=== PATIENT | male | born 1960 | race Hispanic/Latino ===

== ENCOUNTER 2021-01-23 22:15 | Emergency (ER) | payer OTHER ==
[2021-01-23] MEDS ORDERED: TETANUS,DIPH,PERTUSS(ACELL) VACCINE 0.5 ML SYRINGE IM ONE (22:36)
[2021-01-23] MEDS ORDERED: ONDANSETRON 4 MG/2 ML INJ IV ONE ×2 (22:37)
[2021-01-23] MEDS ORDERED: HYDROmorphone 1 MG/1 ML INJ IV ONE ×4 (22:37→23:59)
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
--- NOTE | 2021-01-23 23:31 | XRay Report ---
HUMERUS 2 VIEWS INDICATION / CLINICAL INFORMATION: elbow deformity COMPARISON: None available. FINDINGS: BONES / JOINT(S): There is fracture dislocation of the elbow with comminuted fracture of the ulna the radius is dislocated relative to the distal humerus. There is soft tissue gas adjacent to the elbow. No discrete fracture of the humerus is identified on these radiographs. SOFT TISSUES: There is soft tissue gas and soft tissue swelling around the elbow. ADDITIONAL FINDINGS: None. Signer Name: Jeffrey Mcarthur MD Signed: 01/23/2021 11:26 PM Workstation Name: [id number]
--- NOTE | 2021-01-23 23:31 | XRay Report ---
LEFT ELBOW 2 VIEWS INDICATION / CLINICAL INFORMATION: elbow deformity COMPARISON: None available. FINDINGS: BONES / JOINT(S): There is fracture dislocation of the left elbow. There is a comminuted fracture of the proximal ulna. The ulnar fracture is angulated anteriorly. There is soft tissue gas. SOFT TISSUES: There is soft tissue gas indicating that this is an open fracture. ADDITIONAL FINDINGS: None. Signer Name: Jeffrey Mcarthur MD Signed: 01/23/2021 11:27 PM Workstation Name: [id number]
[2021-01-24] MEDS ORDERED: HYDROmorphone 1 MG/1 ML INJ IV ONE ×3 (00:01→02:20)
[2021-01-24 01:23] VITALS: BP 113/68
== END 2021-01-24 02:00 | disposition other institution (70) ==
LOC: ED 22:15
DX: S52.092B Other fracture of upper end of left ulna, initial encounter for open fracture type I or II (principal); I10 Essential (primary) hypertension; F17.200 Nicotine dependence, unspecified, uncomplicated; Z98.890 Other specified postprocedural states; Z79.2 Long term (current) use of antibiotics; Z79.899 Other long term (current) drug therapy; Z88.0 Allergy status to penicillin; W10.9XXA Fall (on) (from) unspecified stairs and steps, initial encounter; Y93.89 Activity, other specified; Y92.89 Other specified places as the place of occurrence of the external cause; Y99.8 Other external cause status
CPT/HCPCS: 29105; 73060; 73070; 90471; 90715; 96365; 96375; 96376; 99285; J0690; J1170; J2405

== ENCOUNTER 2021-01-31 12:00 | Emergency (ER) | payer OTHER ==
--- NOTE | 2021-01-31 17:17 | Event Note ---
ED Screening Note Date of service: 01/31/21 Time: 17:14 ED Screening Note: Patient presents to the ER today with complaints of difficulty urinating and pain with urination which started this past Sunday and then hematuria which started today. He denies any back pain or abdominal pain. He denies any known prostate disease. He is not any blood thinners. Patient also complains of left-sided chest pain today. He states that he thinks it could be from a pulled muscle because he recently fractured his left ulnar and had to have it surgically repaired at [place] last week. He denies any associated shortness of breath. Patient also requesting a refill on his oxycodone 5 mg which was prescribed to him after his surgery on his left ulnar at [place]. He states that he had to take more than what was prescribed over the weekend because he was using his hands when he was not supposed to. His follow-up appointment is February 11. This initial assessment/diagnostic orders/clinical plan/treatment(s) is/are subject to change based on patients health status, clinical progression and re-assessment by fellow clinical providers in the ED. Further treatment and workup at subsequent clinical providers discretion. Patient/guardian urged not to elope from the ED as their condition may be serious if not clinically assessed and managed. Initial orders include: CBC, CMP, EKG, troponin, urinalysis, chest x-ray
--- NOTE | 2021-01-31 17:40 | Electrocardiograph Report ---
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
[2021-01-31 17:51] LABS: Basophils # (Auto) 0.1 K/mm3 (0.0-0.1); Basophils % (Auto) 0.6 % (0.0-1.8); Eosinophils # (Auto) 0.1 K/mm3 (0.0-0.4); Hemoglobin 11.7 gm/dl (11.8-15.2); Lymphocytes # (Auto) 0.9 K/mm3 (1.2-5.4); Lymphocytes % (Auto) 10.9 % (13.4-35.0); Mean Corpuscular HGB Conc 34 % (32-34); Mean Corpuscular Volume 96 fl (84-94); Monocytes # (Auto) 0.8 K/mm3 (0.0-0.8); Monocytes % (Auto) 9.5 % (0.0-7.3); Platelet Count 400 K/mm3 (140-440); Red Blood Count 3.54 M/mm3 (3.65-5.03); Red Cell Distribution Width 12.9 % (13.2-15.2)
--- NOTE | 2021-01-31 18:00 | XRay Report ---
CHEST 2 VIEWS INDICATION: chest pain. COMPARISON: None FINDINGS: Support devices: None. Heart: Within normal limits. Lungs: No acute air space or interstitial disease. Pleura: No significant pleural effusion. No pneumothorax. Additional findings: Old healed rib fractures left hemithorax IMPRESSION: 1. No acute findings. Signer Name: Michael Cunningham MD Signed: 01/31/2021 5:55 PM Workstation Name: [id number]
[2021-01-31 18:06] LABS: Alanine Aminotransferase 51 units/L (7-56); Albumin 3.4 g/dL (3.9-5); BUN/Creatinine Ratio 11; Blood Urea Nitrogen 9 mg/dL (9-20); Calcium 8.8 mg/dL (8.4-10.2); Hemolysis Index 4
[2021-01-31 18:07] LABS: Bacteria,Urine 1+ /HPF (Negative); Bilirubin,Urine NEG (Negative); Blood,Urine MOD (Negative); Color,Urine Yellow (Yellow); Mucus,Urine FEW /HPF; Protein,Urine <15 mg/dL mg/dL (Negative); Urobilinogen,Urine < 2.0 mg/dL (<2.0)
[2021-01-31] MEDS ORDERED: ONDANSETRON 4 MG ODT TAB PO ONE (23:12)
[2021-01-31] MEDS ORDERED: MORPHINE 4 MG/1 ML INJ IV ONE (23:12)
--- NOTE | 2021-01-31 23:52 | Emergency Department Report ---
ED Chest Pain HPI - General Chief Complaint: Chest Pain Stated Complaint: CHEST PAIN/ELBOW INJURY Time Seen by Provider: 01/31/21 14:02 Source: patient Mode of arrival: Ambulatory Limitations: No Limitations - History of Present Illness Initial Comments: 60-year-old male patient presents with complaints of difficulty urinating, dysuria, hematuria x2 days and left-sided chest pain today. Patient states he fell down some stairs about 8 to 10 days ago and broke his left arm. He also states he sustained bruising to his left torso and chest wall. Patient reports he had surgery at [facility] last week to repair a broken ulna. He admits to some shortness of breath, but denies cough or hemoptysis or history of DVT/PE. No abdominal pain per patient, however he states history of a right inguinal hernia that has been increasing in pain for some time now. No penile discharge or testicular pain/swelling per patient. He reports history of hypertension and family history of heart disease. Patient rates his chest pain as a 7/10 in severity and describes it as aching. He states that he believes the chest pain has been there since his fall, however he believes he is just now noticing the pain due to running out of his prescribed oxycodone today. - Related Data Previous Rx's Medication Instructions Recorded Last Taken Type Clindamycin [Clindamycin CAP] 300 mg PO Q8H #20 cap 05/04/14 05/08/14 21:00 Rx Clindamycin [Clindamycin CAP] 300 mg PO Q8H #12 cap 05/09/14 Unknown Rx HYDROcodone/APAP 10-325 [[place] 1 each PO Q6HR PRN #20 tablet 05/09/14 Unknown Rx 10-325 mg TAB] Clindamycin [Cleocin] 300 mg PO Q8H #30 cap 10/16/14 Unknown Rx traMADoL [Ultram] 50 mg PO Q6HR PRN #14 tablet 10/16/14 Unknown Rx Doxycycline Hyclate 100 mg PO BID 10 Days #20 02/01/21 Unknown Rx Gemifloxacin Mesylate [Factive] 320 mg PO QDAY 1 Days #1 tablet 02/01/21 Unknown Rx Allergies Allergy/AdvReac Type Severity Reaction Status Date / Time Penicillins Allergy Swelling Verified 07/15/13 04:52 Heart Score - HEART Score History: Slightly suspicious EKG: Normal Age: 45-65 Risk factors: > 3 risk factors or hx of atherosclerotic disease Troponin: < normal limit HEART Score: 3 ED Review of Systems ROS: Stated complaint: CHEST PAIN/ELBOW INJURY Other details as noted in HPI Constitutional: denies: chills, diaphoresis, fever, malaise, weakness Respiratory: shortness of breath. denies: cough, wheezing Cardiovascular: chest pain. denies: palpitations, edema, syncope Gastrointestinal: as per HPI. denies: nausea, vomiting, diarrhea, constipation, hematochezia Genitourinary: dysuria, frequency. denies: urgency, discharge Musculoskeletal: denies: back pain Neurological: denies: headache, abnormal gait Hematological/Lymphatic: denies: easy bleeding, swollen glands ED Past Medical Hx - Past Medical History Previous Medical History?: Yes Hx Hypertension: Yes Additional medical history: Hernia - Surgical History Past Surgical History?: Yes Additional Surgical History: foot - Social History Smoking Status: Never Smoker Substance Use Type: None - Medications Home Medications: Home Medications Medication Instructions Recorded Confirmed Last Taken Type Clindamycin [Clindamycin CAP] 300 mg PO Q8H #20 cap 05/04/14 05/09/14 05/08/14 21:00 Rx Clindamycin [Clindamycin CAP] 300 mg PO Q8H #12 cap 05/09/14 Unknown Rx HYDROcodone/APAP 10-325 [[place] 1 each PO Q6HR PRN #20 tablet 05/09/14 Unknown Rx 10-325 mg TAB] Clindamycin [Cleocin] 300 mg PO Q8H #30 cap 10/16/14 Unknown Rx traMADoL [Ultram] 50 mg PO Q6HR PRN #14 tablet 10/16/14 Unknown Rx Doxycycline Hyclate 100 mg PO BID 10 Days #20 tablet. 02/01/21 Unknown Rx Gemifloxacin Mesylate [Factive] 320 mg PO QDAY 1 Days #1 tablet 02/01/21 Unknown Rx ED Physical Exam - General Limitations: No Limitations General appearance: alert, in no apparent distress - Head Head exam: Present: atraumatic, normocephalic - ENT ENT exam: Present: mucous membranes moist - Neck Neck exam: Present: normal inspection - Respiratory Respiratory exam: Present: normal lung sounds bilaterally, chest wall te nderness, other (Large ecchymosis noted to left lateral chest wall and torso/abdomen with tenderness to palpation). Absent: respiratory distress - Cardiovascular Cardiovascular Exam: Present: regular rate, normal rhythm. Absent: systolic murmur, diastolic murmur, rubs, gallop - GI/Abdominal GI/Abdominal exam: Present: soft, normal bowel sounds. Absent: tenderness, guarding, rebound, rigid - Back Exam Back exam: Present: full ROM. Absent: CVA tenderness (R), CVA tenderness (L) - Neurological Exam Neurological exam: Present: alert, oriented X3, normal gait - Psychiatric Psychiatric exam: Present: normal affect, normal mood - Skin Skin exam: Present: warm, dry, intact, ecchymosis. Absent: rash ED Course Vital Signs 01/31/21 02/01/21 12:15 00:01 Temperature 99.2 F Pulse Rate 95 H 82 Respiratory 16 17 Rate Blood Pressure 142/89 [Left] Blood Pressure 161/90 [Right] O2 Sat by Pulse 97 97 Oximetry ED Medical Decision Making - Lab Data Result diagrams: 01/31/21 17:29 01/31/21 17:29 Lab Results 01/31/21 01/31/21 01/31/21 Range/Units 17:29 17:29 23:02 WBC 8.2 (4.5-11.0) K/mm3 RBC 3.54 L (3.65-5.03) M/mm3 Hgb 11.7 L (11.8-15.2) gm/dl Hct 34.0 L (35.5-45.6) % MCV 96 H (84-94) fl MCH 33 H (28-32) pg MCHC 34 (32-34) % RDW 12.9 L (13.2-15.2) % Plt Count 400 (140-440) K/mm3 Lymph % (Auto) 10.9 L (13.4-35.0) % [place] % (Auto) 9.5 H (0.0-7.3) % Eos % (Auto) 1.0 (0.0-4.3) % Baso % (Auto) 0.6 (0.0-1.8) % Lymph # (Auto) 0.9 L (1.2-5.4) K/mm3 [place] # (Auto) 0.8 (0.0-0.8) K/mm3 Eos # (Auto) 0.1 (0.0-0.4) K/mm3 Baso # (Auto) 0.1 (0.0-0.1) K/mm3 Seg Neutrophils % 78.0 H (40.0-70.0) % Seg Neutrophils # 6.4 (1.8-7.7) K/mm3 PT (12.2-14.9) Sec. INR (0.87-1.13) APTT (24.2-36.6) Sec. D-Dimer (0-234) ng/mlDDU Sodium 138 (137-145) mmol/L Potassium 4.2 (3.6-5.0) mmol/L Chloride 101.7 (98-107) mmol/L Carbon Dioxide 26 (22-30) mmol/L Anion Gap 15 mmol/L BUN 9 (9-20) mg/dL Creatinine 0.8 (0.8-1.3) mg/dL Estimated GFR > 60 ml/min BUN/Creatinine Ratio 11 % Glucose 148 H (75-100) mg/dL Calcium 8.8 (8.4-10.2) mg/dL Total Bilirubin 0.50 (0.1-1.2) mg/dL AST 49 H (5-40) units/L ALT 51 (7-56) units/L Alkaline Phosphatase 76 (35-129) units/L Troponin T < 0.010 < 0.010 (0.00-0.029) ng/mL Total Protein 6.6 (6.3-8.2) g/dL Albumin 3.4 L (3.9-5) g/dL Albumin/Globulin Ratio 1.1 % Lipase 19 (13-60) units/L Urine Color (Yellow) Urine Turbidity (Clear) Urine pH (5.0-7.0) Ur Specific [place] (1.003-1.030) Urine Protein (Negative) mg/dL Urine Glucose (UA) (Negative) mg/dL Urine Ketones (Negative) mg/dL Urine Blood (Negative) Urine Nitrite (Negative) Urine Bilirubin (Negative) Urine Urobilinogen (<2.0) mg/dL Ur Leukocyte Esterase (Negative) Urine WBC (Auto) (0.0-6.0) /HPF Urine RBC (Auto) (0.0-6.0) /HPF Urine Bacteria (Auto) (Negative) /HPF Urine Mucus /HPF 01/31/21 01/31/21 01/31/21 Range/Units 23:05 23:05 Unknown WBC (4.5-11.0) K/mm3 RBC (3.65-5.03) M/mm3 Hgb (11.8-15.2) gm/dl Hct (35.5-45.6) % MCV (84-94) fl MCH (28-32) pg MCHC (32-34) % RDW (13.2-15.2) % Plt Count (140-440) K/mm3 Lymph % (Auto) (13.4-35.0) % [place] % (Auto) (0.0-7.3) % Eos % (Auto) (0.0-4.3) % Baso % (Auto) (0.0-1.8) % Lymph # (Auto) (1.2-5.4) K/mm3 [place] # (Auto) (0.0-0.8) K/mm3 Eos # (Auto) (0.0-0.4) K/mm3 Baso # (Auto) (0.0-0.1) K/mm3 Seg Neutrophils % (40.0-70.0) % Seg Neutrophils # (1.8-7.7) K/mm3 PT 12.4 (12.2-14.9) Sec. INR 0.93 (0.87-1.13) APTT 28.0 (24.2-36.6) Sec. D-Dimer 1334.91 H (0-234) ng/mlDDU Sodium (137-145) mmol/L Potassium (3.6-5.0) mmol/L Chloride (98-107) mmol/L Carbon Dioxide (22-30) mmol/L Anion Gap mmol/L BUN (9-20) mg/dL Creatinine (0.8-1.3) mg/dL Estimated GFR ml/min BUN/Creatinine Ratio % Glucose (75-100) mg/dL Calcium (8.4-10.2) mg/dL Total Bilirubin (0.1-1.2) mg/dL AST (5-40) units/L ALT (7-56) units/L Alkaline Phosphatase (35-129) units/L Troponin T (0.00-0.029) ng/mL Total Protein (6.3-8.2) g/dL Albumin (3.9-5) g/dL Albumin/Globulin Ratio % Lipase (13-60) units/L Urine Color Yellow (Yellow) Urine Turbidity Clear (Clear) Urine pH 6.0 (5.0-7.0) Ur Specific [place] 1.014 (1.003-1.030) Urine Protein <15 mg/dl (Negative) mg/dL Urine Glucose (UA) 150 (Negative) mg/dL Urine Ketones Neg (Negative) mg/dL Urine Blood Mod (Negative) Urine Nitrite Neg (Negative) Urine Bilirubin Neg (Negative) Urine Urobilinogen < 2.0 (<2.0) mg/dL Ur Leukocyte Esterase Neg (Negative) Urine WBC (Auto) 4.0 (0.0-6.0) /HPF Urine RBC (Auto) 105.0 (0.0-6.0) /HPF Urine Bacteria (Auto) 1+ (Negative) /HPF Urine Mucus Few /HPF - Radiology Data Radiology results: report reviewed CHEST 2 VIEWS INDICATION: chest pain. COMPARISON: None FINDINGS: Support devices: None. Heart: Within normal limits. Lungs: No acute air space or interstitial disease. Pleura: No significant pleural effusion. No pneumothorax. Additional findings: Old healed rib fractures left hemithorax IMPRESSION: 1. No acute findings. CT ABDOMEN AND PELVIS WITH IV CONTRAST INDICATION: Pt complains of abd pain, hematuria, Inguinal Hernia. COMPARISON: None available. TECHNIQUE: All CT scans at this facility use dose modulation, automated exposure control, iterative reconstruction or weight based dosing, when appropriate, to reduce radiation dose to as low as reasonably achievable. FINDINGS: Lung Bases: No significant abnormality. Skeletal System: No acute abnormality. ABDOMEN: Liver: Mild steatosis. Mild hepatomegaly. Gallbladder: Cholelithiasis. Bile Ducts: No significant abnormality. Pancreas: No significant abnormality. Spleen: No significant abnormality. Adrenals: No significant abnormality. Right Kidney: No significant abnormality. Left Kidney: No significant abnormality. Upper GI tract: No significant abnormality. Lymph Nodes: No significant adenopathy. Aorta: No significant abnormality. Additional Findings: No significant abnormality. PELVIS: Colon: No acute abnormality. Urinary Bladder and Distal Ureters: No significant abnormality. Appendix: No significant abnormality. Lymph Nodes: No significant adenopathy. Additional Findings: There is a very large right groin hernia which is not completely included on this exam. There is a long segment of distal small bowel within the hernia. There is no obstruction proximal to the hernia. Mild stranding is seen within the hernia. Prostate is enlarged. IMPRESSION: 1. Small bowel containing large right groin hernia. No bowel obstruction is seen proximal to the herniated small bowel. The hernia is incompletely included on this exam due to its large size/inferior extent. 2. Incidental findings, as above. CTA CHEST WITH IV CONTRAST INDICATION: Pt complains of chest pain, S.O.B., LEFT sided bruising,+ D-dimer. TECHNIQUE: Axial CT images were obtained through the chest after injection of IV contrast. 3 plane MIP reconstructions were produced. All CT scans at this location are performed using CT dose reduction for ALARA by means of automated exposure control. COMPARISON: None available. FINDINGS: Pulmonary Arteries: No pulmonary emboli. Thoracic Aorta: No acute abnormality. Heart: Normal. Lungs: No acute air space or interstitial disease. Pleura: No pleural effusion. No pneumothorax. Lymph Nodes: No significant adenopathy. Additional Findings: None. Skeletal Structures: No significant osseous abnormality. IMPRESSION: 1. No CT evidence for pulmonary embolism. 2. No acute findings. - Medical Decision Making 60-year-old male patient presents with complaints of difficulty urinating, dysuria, hematuria x2 days and left-sided chest pain today. Patient states he fell down some stairs about 8 to 10 days ago and broke his left arm. He also states he sustained bruising to his left torso and chest wall. Patient reports he had surgery at [facility] last week to repair a broken ulna. He admits to some shortness of breath, but denies cough or hemoptysis or history of DVT/PE. No abdominal pain per patient, however he states history of a right inguinal hernia that has been increasing in pain for some time now. No penile discharge or testicular pain/swelling per patient. He reports history of hypertension and family history of heart disease. Patient rates his chest pain as a 7/10 in severity and describes it as aching. He states that he believes the chest pain has been there since his fall, however he believes he is just now noticing the pain due to running out of his prescribed oxycodone today. Critical care attestation.: If time is entered above; I have spent that time in minutes in the direct care of this critically ill patient, excluding procedure time. ED Disposition Clinical Impression: Hematuria Qualifiers: Hematuria type: gross Qualified Code(s): R31.0 - Gross hematuria Chest pain Qualifiers: Chest pain type: other chest pain Qualified Code(s): R07.89 - Other chest pain Disposition: TO HOME OR SELFCARE Is pt being admited?: No Condition: Stable Instructions: Nonspecific Chest Pain, Adult, Dysuria Prescriptions: Doxycycline Hyclate 100 mg PO BID 10 Days #20 tablet. Gemifloxacin Mesylate [Factive] 320 mg PO QDAY 1 Days #1 tablet Referrals: MCKENNA OWEN [Other] - 3-5 Days KASSIDY BROOKS MD [Staff Physician] - 02/02/21 (Blood in urine )
[2021-02-01 00:29] LABS: INR 0.93 (0.87-1.13)
--- NOTE | 2021-02-01 01:31 | Cat Scan Report ---
CTA CHEST WITH IV CONTRAST INDICATION: Pt complains of chest pain, S.O.B., LEFT sided bruising,+ D-dimer. TECHNIQUE: Axial CT images were obtained through the chest after injection of IV contrast. 3 plane MIP reconstru ctions were produced. All CT scans at this location are performed using CT dose reduction for ALARA b y means of automated exposure control. COMPARISON: None available. FINDINGS: Pulmonary Arteries: No pulmonary emboli. Thoracic Aorta: No acute abnormality. Heart: Normal. Lungs: No acute air space or interstitial disease. Pleura: No pleural effusion. No pneumothorax. Lymph Nodes: No significant adenopathy. Additional Findings: None. Skeletal Structures: No significant osseous abnormality. IMPRESSION: 1. No CT evidence for pulmonary embolism. 2. No acute findings. Signer Name: Epifanio Bolaños MD Signed: 02/01/2021 1:27 AM Workstation Name: [id number]
--- NOTE | 2021-02-01 01:37 | Cat Scan Report ---
CT ABDOMEN AND PELVIS WITH IV CONTRAST INDICATION: Pt complains of abd pain, hematuria, Inguinal Hernia. COMPARISON: None available. TECHNIQUE: All CT scans at this facility use dose modulation, automated exposure control, iterative reconstructi on or weight based dosing, when appropriate, to reduce radiation dose to as low as reasonably achieva ble. FINDINGS: Lung Bases: No significant abnormality. Skeletal System: No acute abnormality. ABDOMEN: Liver: Mild steatosis. Mild hepatomegaly. Gallbladder: Cholelithiasis. Bile Ducts: No significant abnormality. Pancreas: No significant abnormality. Spleen: No significant abnormality. Adrenals: No significant abnormality. Right Kidney: No significant abnormality. Left Kidney: No significant abnormality. Upper GI tract: No significant abnormality. Lymph Nodes: No significant adenopathy. Aorta: No significant abnormality. Additional Findings: No significant abnormality. PELVIS: Colon: No acute abnormality. Urinary Bladder and Distal Ureters: No significant abnormality. Appendix: No significant abnormality. Lymph Nodes: No significant adenopathy. Additional Findings: There is a very large right groin hernia which is not completely included on thi s exam. There is a long segment of distal small bowel within the hernia. There is no obstruction prox imal to the hernia. Mild stranding is seen within the hernia. Prostate is enlarged. IMPRESSION: 1. Small bowel containing large right groin hernia. No bowel obstruction is seen proximal to the her niated small bowel. The hernia is incompletely included on this exam due to its large size/inferior e xtent. 2. Incidental findings, as above. Signer Name: Epifanio Bolaños MD Signed: 02/01/2021 1:33 AM Workstation Name: [id number]
[2021-02-01 03:12] VITALS: BP 150/81
--- NOTE | 2021-02-01 14:53 | Event Note ---
Date: 02/01/21 The patient was evaluated in the emergency department for symptoms described in the history of present illness. He/she was evaluated in the context of the global COVID-19 pandemic, which necessitated consideration that the patient might be at risk for infection with the virus that causes COVID-19. Institutional protocols and algorithms that pertain to the evaluation of patients at risk for COVID-19 are in a state of rapid change based on information released by regulatory bodies including the CDC and federal and state organizations. These policies and algorithms were followed during the patient's care in the emergency department. Please note that these policies, procedures and recommendations changed on a rapid basis. The patient presented to this ER today with a complaint of not being able to picker packer gemifloxacin prescription. He was seen in this department last night/this evening for hematuria, as well as mild dysuria. He had a very thorough and extensive work-up. It is unlikely that the patient has a true penicillin allergy, as he was given Ancef at this department on a previous evaluation for an open arm fracture. The patient is sexually monogamous with a female, only with oral and vaginal intercourse, denies testicular pain and rectal pain as well as dyschezia, and also endorses urinary hesitancy. This is suspicious for BPH. However, in case patient has hemorrhagic cystitis, we will initiate Macrobid therapy, discontinue gemfloxacin, and discontinue doxycycline. Patient understands this plan of care. The patient is adamant in certain that he has no concern for STD at this time. He also understands that he needs to follow-up with either outpatient primary care or urology for his complaint of hematuria.
== END 2021-02-01 02:25 | disposition home or self-care (01) ==
LOC: ED 12:00
DX: R07.89 Other chest pain (principal); R31.9 Hematuria, unspecified; I10 Essential (primary) hypertension; Z98.890 Other specified postprocedural states; Z79.2 Long term (current) use of antibiotics; Z79.899 Other long term (current) drug therapy; Z88.0 Allergy status to penicillin
CPT/HCPCS: 36415; 71046; 71275; 74177; 80053; 81001; 83690; 84484; 85025; 85379; 85610; 85730; 87086; 93005; 96374; 99285; J2270; Q9967; Q0162

== ENCOUNTER 2021-03-25 10:22 | Day surgery (SDC) | payer OTHER ==
[2021-03-23 09:52] LABS: Hematocrit 44.5 % (35.5-45.6); Hemoglobin 15.2 gm/dl (11.8-15.2); Mean Corpuscular HGB Conc 34 % (32-34); Mean Corpuscular Volume 94 fl (84-94); Platelet Count 327 K/mm3 (140-440); Red Blood Count 4.72 M/mm3 (3.65-5.03); Red Cell Distribution Width 12.6 % (13.2-15.2)
[2021-03-23 10:19] LABS: Alanine Aminotransferase 126 units/L (7-56); Albumin 4.9 g/dL (3.9-5); BUN/Creatinine Ratio 22; Blood Urea Nitrogen 20 mg/dL (9-20); Calcium 9.7 mg/dL (8.4-10.2); Hemolysis Index 9
[~2021-03-25 10:22] MED LIST: VANCOMYCIN/NS 1 GM/250 ML 1 GM/250 ML BAG IV NR
[2021-03-25] MEDS ORDERED: LACTATED RINGERS 1,000 ML ONE ×2 (10:45→13:08)
[2021-03-25] MEDS ORDERED: MAGNESIUM OXIDE 400 MG TAB PO NR (10:59)
[2021-03-25] MEDS ORDERED: ONDANSETRON 4 MG/2 ML INJ IV PRN (10:59)
[2021-03-25] MEDS ORDERED: HYDROmorphone 1 MG/1 ML INJ IV PRN (10:59)
[2021-03-25] MEDS ORDERED: GABAPENTIN 300 MG CAP PO NR (11:00)
[2021-03-25] MEDS ORDERED: LACTATED RINGERS 1,000 ML IV SCH (11:00)
[2021-03-25] MEDS ORDERED: CELECOXIB 200 MG CAP PO NR (11:00)
[2021-03-25] MEDS ORDERED: MIDAZOLAM 2 MG/2 ML INJ IV NR (11:00)
[2021-03-25] MEDS ORDERED: ACETAMINOPHEN 500 MG TAB PO NR (11:00)
[2021-03-25] MEDS ORDERED: LIDOCAINE (1%) 10 MG/1 ML VIAL 20 ML MDV ONE (11:01)
[2021-03-25] MEDS ORDERED: BUPIVACAINE/PF (0.5%) 5 MG/1 ML 30 ML VIAL INFILTRATI ONE ×2 (11:01→12:29)
--- NOTE | 2021-03-25 11:15 | Anesthesia Day of Surgery ---
Anesthesia Day of Surgery - Day of Surgery Patient Examined: Yes Patient H&P Reviewed: Yes Patient is NPO: Yes
--- NOTE | 2021-03-25 11:18 | Anesthesia Consultation ---
Anesthesia Consult and Med Hx Date of service: 03/25/21 - Airway Anesthetic Teeth Evaluation: Poor (Rotten, missing) ROM Head & Neck: Adequate Mental/Hyoid Distance: Adequate Mallampati Class: Class II Intubation Access Assessment: Good - Pre-Operative Health Status ASA Pre-Surgery Classification: ASA3 Proposed Anesthetic Plan: General - Pulmonary Hx Smoking: Yes (1 1/2 PPD X 40 YRS , NOW 2-3 CIG. PER DAY) Hx Respiratory Symptoms: No (+2FS) Hx Sleep Apnea: No (SOPHIE PRE SCREEN HIGH RISK) - Cardiovascular System Hx Hypertension: Yes (ON MEDS X 2 WEEK) Hx Cardia Arrhythmia: Yes - Central Nervous System Hx Back Pain: Yes (BACK AND NECK PAIN) - Gastrointestinal Hx Gastroesophageal Reflux Disease: Yes (Dietary, rare) - Endocrine Hx Liver Disease: Yes (ELEVATED LIVER ENZYMES , HEP C) - Other Systems Hx Substance Use: Yes (HX USE , "NOT NOW") Hx Cancer: No Hx Obesity: No - Additional Comments Anesthesia Medical History Comments: Recent left elbow fracture, ORIF, LUE doesn't straighten
[2021-03-25] MEDS ORDERED: HYDROmorphone 1 MG/1 ML INJ ONE (11:29)
[2021-03-25] MEDS ORDERED: ROCURONIUM 50 MG/5 ML INJ IV ONE ×2 (11:30→13:48)
[2021-03-25] MEDS ORDERED: propofoL 200 MG/20 ML VIAL IV ONE (11:30)
[2021-03-25] MEDS ORDERED: LIDOCAINE MPF (2%) 20 MG/1 ML VIAL 5 ML ONE (11:30)
[2021-03-25] MEDS ORDERED: PHENYLEPHRINE/NS 1,000 MCG/10 ML SYRINGE (OR USE) IV ONE (12:00)
[2021-03-25] MEDS ORDERED: ePHEDrine SULFATE 50 MG/1 ML INJ ONE (12:17)
[2021-03-25] MEDS ORDERED: LIDOCAINE (1%) 10 MG/1 ML VIAL 20 ML MDV INFILTRATI ONE (12:29)
[2021-03-25] MEDS ORDERED: WATER FOR IRRIG STERILE 1,500 ML BOTTLE IR ONE (12:29)
[2021-03-25] MEDS ORDERED: NEOSTIGMINE 10MG/10 ML INJ MDV ONE (14:02)
[2021-03-25] MEDS ORDERED: ONDANSETRON 4 MG/2 ML INJ ONE (14:02)
[2021-03-25] MEDS ORDERED: GLYCOPYRROLATE 0.4 MG/2 ML INJ ONE (14:02)
--- NOTE | 2021-03-25 14:39 | Short Stay Summary ---
Short Stay Documentation Date of service: 03/25/21 - History Principal diagnosis: right inguinal hernia H&P: obtained from office - Allergies and Medications Current Medications: Allergies Penicillins Allergy (Verified 07/15/13 04:52) Swelling Home Medications Medication Instructions Recorded Confirmed Last Taken Type Gabapentin [Neurontin] 400 mg PO Q8HR 03/18/21 03/25/21 03/25/21 07:00 History Losartan/Hydrochlorothiazide 1 each PO DAILY 03/18/21 03/25/21 03/24/21 09:00 History [Losartan-Hctz 50-12.5 mg Tab] Tamsulosin [Flomax] 0.4 mg PO QDAY 03/18/21 03/25/21 03/24/21 20:00 History amLODIPine [Norvasc] 10 mg PO DAILY 03/18/21 03/25/21 03/25/21 07:00 History Active Medications Acetaminophen (Acetaminophen 500 Mg Tab) 1,000 mg PO ONCE NR Stop: 03/25/21 20:00 Last Admin: 03/25/21 11:30 Dose: 1,000 mg Documented by: Celecoxib (Celecoxib 200 Mg Cap) 400 mg PO PREOP NR Stop: 03/25/21 20:00 Last Admin: 03/25/21 11:30 Dose: 400 mg Documented by: Gabapentin (Gabapentin 300 Mg Cap) 300 mg PO PREOP NR Stop: 03/25/21 20:00 Hydromorphone HCl (Hydromorphone 1 Mg/1 Ml Inj) 0.25 mg IV Q10MIN PRN PRN Reason: Pain, Moderate (4-6) Stop: 03/25/21 23:00 Hydromorphone HCl (Hydromorphone 1 Mg/1 Ml Inj) 0.5 mg IV Q10MIN PRN PRN Reason: Pain , Severe (7-10) Stop: 03/25/21 23:00 Vancomycin HCl (Vancomycin/Ns 1 Gm/250 Ml) 1 gm in 250 mls @ 166.667 mls/hr IV PREOP NR; Protocol Stop: 03/25/21 20:00 Last Admin: 03/25/21 11:30 Dose: 166.667 mls/hr Documented by: Lactated Ringer's (Lactated Ringers) 1,000 mls @ 125 mls/hr IV DIRECT MIGUEL Last Admin: 03/25/21 11:10 Dose: 125 mls/hr Documented by: Magnesium Oxide (Magnesium Oxide 400 Mg Tab) 400 mg PO ONCE NR Stop: 03/25/21 15:00 Last Admin: 03/25/21 11:30 Dose: 400 mg Documented by: Midazolam HCl (Midazolam 2 Mg/2 Ml Inj) 2 mg IV PREOP NR Stop: 03/25/21 23:59 Last Admin: 03/25/21 11:32 Dose: 2 mg Documented by: Ondansetron HCl (Ondansetron 4 Mg/2 Ml Inj) 4 mg IV ONCE PRN PRN Reason: Nausea And Vomiting Stop: 03/25/21 16:00 - Brief post op/procedure progress note Date of procedure: 03/25/21 Pre-op diagnosis: right inguinal hernia Post-op diagnosis: same Procedure: robotic assisted right inguinal hernia repair with mesh Anesthesia: GETA, local, other (right ilioinguinal nerve block) Findings: Large indirect inguinal hernia containing small bowel with large redundant hernia sac Repaired with large right 3d max mesh Surgeon: NOE BILLS (HAZEL Carmona (assist)) Estimated blood loss: minimal Pathology: list (hernia sac) Specimen disposition: to lab Condition: stable - Hospital course Hospital course: Pt observed in PACU and discharged to home in stable condition. - Disposition Condition at discharge: Good Disposition: DC-01 TO HOME OR SELFCARE Short Stay Discharge Plan Activity: other (No heavy lifting) Diet: low fat Wound: open to air Additional Instructions: SEE PRINTED DISCHARGE INSTRUCTIONS Follow up with: YESI GABRIEL JR DEVELOPMENT VICE PRESIDENT [Primary Care Provider] - 7 Days NOE BILLS DO [Staff Physician] - 14 Days Prescriptions: Ibuprofen [Motrin 800 MG tab] 800 mg PO Q8HR PRN #30 tablet PRN Reason: Pain, Moderate (4-6) oxyCODONE /ACETAMINOPHEN [Percocet 5/325] 1 tab PO Q6HR PRN #30 tablet PRN Reason: Pain , Severe (7-10)
[2021-03-25] MEDS: HYDROmorphone 1 MG/1 ML INJ IV PRN ×3 (14:49→15:22)
[2021-03-25 17:04] VITALS: BP 96/61
--- NOTE | 2021-03-25 17:16 | Post Anesthesia Evaluation ---
- Post Anesthesia Evaluation Patient Participated: Yes Airway Patent: Yes Stable Respiratory Function: Yes Nausea/Vomiting: No Temp > 96.8F: Yes Pain Manageable: Yes Adequeate Hydration: Yes Anesthesia Complications: No Block Receding Appropriately: Not Applicable Patient on Ventilator: No
--- NOTE | 2021-03-31 07:00 | Operative Report ---
Operative Report Operative Report: Date of procedure: 03/25/21 Pre-op diagnosis: right inguinal hernia Post-op diagnosis: same Procedure: robotic assisted right inguinal hernia repair with mesh Anesthesia: GETA, local, other (right ilioinguinal nerve block) Findings: Large indirect inguinal hernia containing small bowel with large redundant hernia sac Repaired with large right 3d max mesh Surgeon: NOE BILLS (HAZEL Carmona (assist)) Estimated blood loss: minimal Pathology: list (hernia sac) Specimen disposition: to lab Condition: stable - Hospital course Hospital course: Pt observed in PACU and discharged to home in stable condition. - Disposition Condition at discharge: Good Disposition: [id number] TO HOME OR SELFCARE HPI and indication: Patient is a 60-year-old male who was referred to the surgery clinic for a bulge in the right groin. He was found to have a right inguinal hernia on physical exam which was reducible. The hernia was very bothersome and the patient felt it was increasing in size and becoming more painful. It was recommended that the hernia be repaired. I discussed all risk, benefits, alternatives to repair with the patient and questions were answered. I explained that if the hernia was found on the left side at the same time, this would be fixed as well. The patient was agreeable. Consent obtained for robotic assisted right inguinal hernia repair with mesh, possible left, possible open. Procedure in detail: Patient was identified in the preoperative area, takeN back to operating room, AND placed on operating room table in supine position. After anesthesia was induced both arms were tucked and all bony prominences padded appropriately. A Barnard catheter was sterilely placed by the circulating nurse. The abdomen and b/l groins were then prepped and draped in usual sterile fashion and a timeout performed. Local anesthetic was infiltrated to skin at the intended incision sites. A supraumbilical incision was made through which a Veress needle was inserted. Veress needle positioning was confirmed using saline drop test and the abdomen insufflated to 15 mmHg without incident. Once the abdomen was insufflated, the Veress needle was removed and a 5 mm Optiview trocar was placed through the incision. The abdomen was inspected there was no underlying injury to any of the abdominal structures. Patient was placed in Trendelenburg and the pelvis examined. There was a right inguinal hernia which contains small bowel, which was easily reduced using external pressure. And no obvious hernia on the left. At this point, an 8 mm right upper quadrant and left upper quadrant robotic trocars were then placed under direct visualization. The 5 mm supraumbilical trocar was removed and replaced with a 12 mm balloon trocar under direct visualization. A Ray-Kaylene was placed into the abdomen. The robot was then docked. A fenestrated bipolar was placed into arm #2 and a monopolar scissor in arm #1. The surgeon was then transferred to the console. First, I created a right sided preperitoneal flap. The peritoneum was scored approximately 5 to 6 cm from the hernia defect. The peritoneum was then incised from the midline to the ASIS. The preperitoneal flap was then developed in an avascular plane. I first defined the medial margin by dissecting to the pubic tubercle. The pubic tubercle was cleared of overlying fatty tissue using blunt dissection. I then created the lateral margin in a similar fashion. Great care was taken to avoid injury to any nerves. There was a large indirect right inguinal hernia and the hernia sac was gently reduced using blunt dissection and transecting cremasteric fibers with electrocautery. During the dissection, the cord structures were identified and protected. The cord structures and vas deferens were visualized throughout the entire dissection. The hernia sac was very large and redundant, chronically scarred. Once the hernia sac was completely reduced, the peritoneal flap was checked for hemostasis. Any additional cremasteric fibers that were were tenting up the peritoneum were divided. Hemostasis was carefully ensured. The hernia was repaired using a right large 3D max mesh. The mesh along with suture material was placed into the abdomen by the therapist's assistant. The mesh was positioned into the preperitoneal flap in the usual fashion. The medial portion of the mesh was sutured to Anand's ligament using an interrupted 2-0 Vicryl stitch. The lateral aspect of the mesh was sutured to the anterior lateral abdominal wall using a 2-0 Vicryl interrupted stitch. The mesh was seen to lay flat in the pocket with excellent coverage. The peritoneum was then reapproximated using 3-0 running V-Loc stitch. The entirety of the mesh was covered with peritoneum. The robot was then undocked and the surgeon scrubbed back in. The remainder of the case was performed laparoscopically. All sharp materials along with a Ray-Kaylene were removed from the abdomen under direct visualization. The 12 mm port was removed and the fascia closed using a interrupted 0 Vicryl stitch. The abdomen was then slowly desufflated and the mesh was seen to lay flat in the preperitoneal space. The remaining trocars were removed. Skin incisions were once again infiltrated with local anesthetic. RIGHT ilioinguinal nerve block was also performed with 5 cc of local anesthetic. The skin incisions were approximated with 4-0 Monocryl subcuticular stitches and skin glue. At the end of the case all sponge, instrument, sharp counts were correct x2. Patient was awoken from anesthesia and Barnard catheter removed. Both testicles were palpated in the scrotum in anatomic position. The patient was taken to PACU in stable condition.
== END 2021-03-25 16:20 | disposition home or self-care (01) ==
LOC: OR 10:22
PROVIDERS: ATTEND Surgery
DX: K40.90 Unilateral inguinal hernia, without obstruction or gangrene, not specified as recurrent (principal); Z20.822 Contact with and (suspected) exposure to COVID-19; F17.210 Nicotine dependence, cigarettes, uncomplicated; I10 Essential (primary) hypertension; K21.9 Gastro-esophageal reflux disease without esophagitis; F41.9 Anxiety disorder, unspecified; Z98.890 Other specified postprocedural states; Z88.0 Allergy status to penicillin; Z79.899 Other long term (current) drug therapy; Z91.81 History of falling
CPT/HCPCS: 36415; 49650; 80053; 85027; 88302; C1781; J1170; J2250; J2370; J2405; J2704; J2710; J3370; J7120; S2900; U0003

== ENCOUNTER 2021-04-05 10:45 | Outpatient (CLI) | payer OTHER ==
[2021-04-05 11:05] LABS: Basophils # (Auto) 0.1 K/mm3 (0.0-0.1); Basophils % (Auto) 0.9 % (0.0-1.8); Eosinophils # (Auto) 0.2 K/mm3 (0.0-0.4); Eosinophils % (Auto) 2.7 % (0.0-4.3); Hematocrit 40.4 % (35.5-45.6); Hemoglobin 14.3 gm/dl (11.8-15.2); Lymphocytes # (Auto) 1.6 K/mm3 (1.2-5.4); Lymphocytes % (Auto) 19.8 % (13.4-35.0); Mean Corpuscular HGB Conc 35 % (32-34); Mean Corpuscular Volume 94 fl (84-94); Monocytes # (Auto) 0.7 K/mm3 (0.0-0.8); Monocytes % (Auto) 8.3 % (0.0-7.3); Platelet Count 296 K/mm3 (140-440); Red Blood Count 4.32 M/mm3 (3.65-5.03); Red Cell Distribution Width 12.7 % (13.2-15.2)
[2021-04-05 11:40] LABS: Alanine Aminotransferase 109 units/L (7-56); Albumin 4.4 g/dL (3.9-5); BUN/Creatinine Ratio 13; Blood Urea Nitrogen 12 mg/dL (9-20); Calcium 10.2 mg/dL (8.4-10.2); Chol/HDL Ratio 2.61 %; HDL Cholesterol 42 mg/dL (40-59); Hemolysis Index 2; LDL Cholesterol,Direct 58 mg/dL (50-130)
[2021-04-08 16:17] LABS: Vitamin D, 25-OH, D2 <4 ng/mL
== END 2021-04-05 10:46 | disposition home or self-care (01) ==
LOC: LAB 10:45
PROVIDERS: ATTEND Internal Medicine
DX: Z00.00 Encounter for general adult medical examination without abnormal findings (principal); Z13.29 Encounter for screening for other suspected endocrine disorder; Z13.220 Encounter for screening for lipoid disorders; I10 Essential (primary) hypertension; Z13.1 Encounter for screening for diabetes mellitus; E55.9 Vitamin D deficiency, unspecified
CPT/HCPCS: 36415; 80053; 80061; 82306; 83036; 84443; 85025

== ENCOUNTER 2021-04-18 14:41 | Outpatient (CLI) | payer OTHER | END 2021-04-18 14:42 | disposition home or self-care (01) | LOC: LAB 14:41 | PROVIDERS: ATTEND Internal Medicine | DX: R94.5 Abnormal results of liver function studies (principal) | CPT/HCPCS: 36415; 86705; 86706; 86709; 86803; 87350 ==